=== PATIENT | female | born 1990 | race Native Hawaiian/Other Pacific Islander ===

== ENCOUNTER 2022-10-12 17:55 | Emergency (ER) | payer OTHER ==
[~2022-10-12] VITALS: Ht 165.1 cm; Wt 73.5 kg
[2022-10-12 18:04] VITALS: TEMP 97.8
[2022-10-12 18:42] LABS: PLATELET COUNT 206 K/uL (152-353)
[2022-10-12 18:47] LABS: POTASSIUM 3.9 mmol/L (3.6-5.2)
[2022-10-12 20:15] VITALS: BP 109/68
== END 2022-10-12 20:15 | disposition home or self-care (01) ==
LOC: ED 17:55
PROVIDERS: Internal Medicine
DX: R00.2 Palpitations (principal)
CPT/HCPCS: 36415; 80053; 80307; 81002; 85027; 93005; 99282

== ENCOUNTER 2023-01-17 12:49 | Emergency (ER) | payer OTHER ==
[~2023-01-17] VITALS: Ht 165.1 cm; Wt 72.1 kg
[2023-01-17 12:55] VITALS: BP 118/76; TEMP 98.7
== END 2023-01-17 14:50 | disposition home or self-care (01) ==
LOC: ED 12:49
DX: G43.909 Migraine, unspecified, not intractable, without status migrainosus (principal); R11.0 Nausea; H53.8 Other visual disturbances; G93.5 Compression of brain
CPT/HCPCS: 96372; 99283; J1885; J2405